=== PATIENT | male | born 2005 | race Caucasian/White ===

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

== ENCOUNTER 2023-07-03 05:02 | Emergency (ER) | payer OTHER ==
[2023-07-03 06:08] LABS: BILIRUBIN,URINE SMALL (NEGATIVE); GLUCOSE,URINE NORMAL (NORMAL); KETONES,URINE 15 mg/dL (NEGATIVE); LEUKOCYTE ESTERASE,URINE NEGATIVE (NEGATIVE); NITRITE,URINE NEGATIVE (NEGATIVE); OCCULT BLOOD,URINE NEGATIVE (NEGATIVE); PROTEIN,URINE NEGATIVE (NEGATIVE); UROBILINOGEN,URINE NORMAL (NEGATIVE)
[2023-07-03 06:12] LABS: BASOPHILS PERCENT AUTO 0.4 % (0.3-3.8); EOSINOPHILS ABSOLUTE AUTO 0.2 x10-3/uL (0.0-0.6); EOSINOPHILS PERCENT AUTO 2.2 % (0.1-6.8); HEMATOCRIT 42.3 % (38.3-50.1); HEMOGLOBIN 14.5 g/dL (12.9-17.7); LYMPHOCYTES ABSOLUTE AUTO 1.6 x10-3/uL (0.5-4.5); MEAN CORPUSCULAR HEMOGLOBIN 29.7 pg (27.0-33.3); MEAN CORPUSCULAR HGB CONC 34.2 g/dL (28.7-35.3); MEAN CORPUSCULAR VOLUME 86.9 fL (80.8-98.7); MEAN PLATELET VOLUME 8.6 fL (6.7-11.0); MONOCYTES ABSOLUTE AUTO 0.7 x10-3/uL (0.0-1.2); MONOCYTES PERCENT AUTO 7.5 % (5.5-15.2); NEUTROPHILS ABSOLUTE AUTO 6.7 x10-3/uL (1.7-6.9); NEUTROPHILS PERCENT AUTO 72.9 % (40.3-71.8); PLATELET COUNT,PLT 212 x10(3)uL (117-477); RED BLOOD CELL COUNT 4.86 x10(6)uL (3.90-5.90); RED CELL DISTRIBUTION WIDTH 12.8 % (12.4-15.0); WHITE BLOOD CELL COUNT,WBC 9.1 x10-3/uL (3.2-10.1)
[2023-07-03 06:14] LABS: APPEARANCE,URINE CLEAR (CLEAR); BACTERIA,URINE RARE (NS); COLOR,URINE YELLOW (YELLOW); RBC,URINE 0-5 (0-5); SQUAMOUS EPITHELIAL CELLS,UR OCCASIONAL (NS,R,O); WBC,URINE 0-5 (0-5)
[2023-07-03 06:15] LABS: AMPHETAMINES SCREEN, URINE NEGATIVE (NEGATIVE); BARBITURATE SCREEN,URINE NEGATIVE (NEGATIVE); BENZODIAZEPINES SCREEN,URINE NEGATIVE (NEGATIVE); BUPRENORPHINE SCREEN,URINE NEGATIVE (NEGATIVE); METHADONE SCREEN, URINE NEGATIVE (NEGATIVE); METHAMPHETAMINE SCREEN, URINE NEGATIVE (NEGATIVE); OXYCODONE SCREEN,URINE NEGATIVE (NEGATIVE); THC SCREEN,URINE NEGATIVE (NEGATIVE)
[2023-07-03 06:19] LABS: BASE EXCESS VENOUS,POC -1 mmol/L (-2 - 3+); PCO2 VENOUS,POC 45 mmHg (41-51); PH VENOUS,POC 7.36 pH Units (7.32-7.43)
[2023-07-03 06:19] LABS: BLOOD UREA NITROGEN,BUN 12 mg/dL (7-18); CALCIUM 8.8 mg/dL (8.6-10.2); CARBON DIOXIDE,CO2 28 mmol/L (21-32); CHLORIDE,CL 103 mmol/L (100-110); EST CRCL DRUG DOSING (CG) 120.96 mL/min; ESTIMATED GFR 111 mL/min (>60); GLUCOSE RANDOM 116 mg/dL (80-116); POTASSIUM,K 3.4 mmol/L (3.5-5.3); SODIUM,NA 140 mmol/L (135-145)
[2023-07-03] MEDS: Sodium Chloride 0.9% 1,000 ML IV ONE (06:20)
[2023-07-03] MEDS: Alum Hydroxide/Mag Hydroxide 30 ML, Lidocaine 2% 15 ML PO ONE (06:21)
[2023-07-03 06:25] LABS: A/G RATIO 1.6; ALANINE AMINOTRANSFERASE,ALT 13 U/L (12-36); ALBUMIN 4.4 g/dL (3.5-5.2); ALKALINE PHOSPHATASE 90 IU/L (56-112); ASPARTATE AMNIOTRANSFERASE,AST 11 IU/L (5-25); BILIRUBIN TOTAL 4.5 mg/dL (0.1-1.3); PROTEIN TOTAL,TP 7.2 g/dL (6.0-8.0)
[2023-07-03] MEDS: Pantoprazole 40 MG Vial IVPUSH ONE (06:26)
[2023-07-03] MEDS: Ondansetron 4 MG/2 ML SDV IVPUSH ONE (06:26)
[2023-07-03 06:34] LABS: TSH ULTRASENSITIVE 3.86 IU/mL (0.36-3.74)
[2023-07-03 06:50] LABS: ACETAMINOPHEN < 2 ug/mL (<2); SALICYLATE < 2.8 mg/dL (<2.8)
[2023-07-03 06:58] LABS: ETHANOL BLOOD MEDICAL < 0.03 % (<0.03)
[2023-07-03] MEDS: Potassium Chloride 20 MEQ Tab.ER PO ONE (10:05)
[2023-07-03 15:40] VITALS: BP 135/76; PULSE 89
== END 2023-07-03 11:04 ==
LOC: FB.ED 05:02
DX: T39.392A Poisoning by other nonsteroidal anti-inflammatory drugs [NSAID], intentional self-harm, initial encounter (principal); E86.0 Dehydration; K29.70 Gastritis, unspecified, without bleeding; Z79.899 Other long term (current) drug therapy
CPT/HCPCS: 36415; 80053; 80143; 80179; 80307; 81001; 84443; 85025; 93005; 93010; 96361; 96374; 96375; 99285; 99285-25; A9270-GY; C9113; J2405; J7030

== ENCOUNTER 2024-03-25 02:52 | Emergency (ER) | payer OTHER ==
[2024-03-25 03:22] LABS: BILIRUBIN,URINE NEGATIVE (NEGATIVE); GLUCOSE,URINE NORMAL (NORMAL); KETONES,URINE NEGATIVE (NEGATIVE); LEUKOCYTE ESTERASE,URINE NEGATIVE (NEGATIVE); NITRITE,URINE NEGATIVE (NEGATIVE); OCCULT BLOOD,URINE NEGATIVE (NEGATIVE); PROTEIN,URINE NEGATIVE (NEGATIVE); UROBILINOGEN,URINE NORMAL (NEGATIVE)
[2024-03-25 03:24] LABS: APPEARANCE,URINE CLEAR (CLEAR); BACTERIA,URINE FEW (NS); COLOR,URINE YELLOW (YELLOW); MUCUS,URINE FEW (NS); RBC,URINE 0-5 (0-5); SQUAMOUS EPITHELIAL CELLS,UR OCCASIONAL (NS,R,O); WBC,URINE 0-5 (0-5)
[2024-03-25 04:05] VITALS: BP 121/77; PULSE 66
== END 2024-03-25 04:00 | disposition home or self-care (01) ==
LOC: FB.ED 02:52
DX: R30.9 Painful micturition, unspecified (principal); Z86.16 Personal history of COVID-19
CPT/HCPCS: 81001; 99283